=== PATIENT | male | born 1980 | race Caucasian/White ===

== ENCOUNTER 2018-08-23 14:55 | Emergency (ER) | payer OTHER ==
[~2018-08-23] VITALS: Ht 175.3 cm; Wt 89.0 kg
[2018-08-23 14:59] VITALS: Ht 175.3 cm; Wt 89.0 kg
[2018-08-23] MEDS ORDERED: LORA1TAB PO (17:39)
--- NOTE | 2018-08-23 17:48 | ERD ---
ER Documentation Chief Complaint Chief Complaint ANXIETY HPI 37-year-old male presents with 3 days history of anxiety. States that he has been feeling very anxious lately and finding himself getting irritated. States that he has had done methamphetamine in the past but denies any current meth use. He thinks that his anxiety might be due to stopping meth. Last use was 4 days ago. Has episodes in the past where he feels anxious and irritated and he just wants medication to help him get through the next few days. States that he intends to seek a therapist. Denies any suicidal or homicidal ideation. Denies any current drug use, chest pain, palpitations, history of thyroid problems, headaches, hypertension. In addition patient states that he was engaged in risky sexual behavior and would like infectious disease panel. Patient denies any dysuria, hematuria, penile discharge, rashes, fevers, chills. Denies any medical problems. Denies any allergies. ROS All systems reviewed and are negative except as per history of present illness. Medications Home Meds Active Scripts Lorazepam* (Lorazepam*) 1 Mg Tablet, 1 MG PO Q8H PRN for ANXIETY, #10 TAB Prov:STEPHANY HAYWOOD 08/23/18 FmHx Family History: No diabetes, No coronary disease, No other Physical Exam Vitals Vital Signs Date Temp Pulse Resp B/P (MAP) Pulse Ox O2 O2 Flow FiO2 Time Delivery Rate 08/23/18 98.1 86 18 138/65 99 14:59 (89) Physical Exam Const: No acute distress Head: Atraumatic Eyes: Normal Conjunctiva ENT: Normal External Ears, Nose and Mouth. Neck: Full range of motion. No meningismus. Resp: Clear to auscultation bilaterally Cardio: Regular rate and rhythm, no murmurs Abd: Soft, non tender, non distended. Normal bowel sounds Skin: No petechiae or rashes Back: No midline or flank tenderness Ext: No cyanosis, or edema Neur: Awake and alert Psych: Normal Mood and Affect Procedures/MDM MDM: Patient presentation consistent with anxiety, possibly related to cessation of meth which occurred 4 days ago. States that he has been in rehab and intends to come back. Patient was given the option of social service consult and refused. Patient states that he will follow-up with a therapist or rehab center on his own. I have low suspicion for acute methamphetamine withdrawal, benzodiazepine withdrawal, suicidal homicidal ideation, acute psychosis, or any other emergent condition. Patient was given 3-day course of Ativan and advised to follow-up with therapist. In addition, patient states that he is engaged in some risky sexual behavior and would like an infectious disease panel. Patient denies any dysuria, hematuria, penile discharge, rashes, fevers. Patient was advised to refrain from sexual activity with the partner until he knows that his lab results are negative and his symptoms have resolved. At this time, patient is stable for discharge and outpatient management. I have instructed the patient to follow-up with his/her primary care physician in 1-2 days. I have discussed with the patient the possibility of needing to see a specialist for further workup and imaging studies if symptoms persist. I have instructed the patient to promptly return to the ER for any new or worsening symptoms including but not limited to increased pain, fever, nausea, vomiting, weakness or LOC. The patient and/or family expressed understanding of and agreement with this plan. All questions were answered. Home care instructions were provided. DISCLAIMER: Inadvertent spelling and grammatical errors are likely due to EHR/dictation software use and do not reflect on the overall quality of patient care. Also, please note that the electronic time recorded on this note does not necessarily reflect the actual time of the patient encounter. Departure Diagnosis: Primary Impression: Anxiety Additional Impression: Risky sexual behavior High risk sexual behavior type: unspecified Qualified Codes: Z72.51 - High risk heterosexual behavior Condition: Stable Patient Instructions: Your Body's Response to Anxiety Referrals: [facility] YOU HAVE RECEIVED A MEDICAL SCREENING EXAM AND THE RESULTS INDICATE THAT YOU DO NOT HAVE A CONDITION THAT REQUIRES URGENT TREATMENT IN THE EMERGENCY DEPARTMENT. FURTHER EVALUATION AND TREATMENT OF YOUR CONDITION CAN WAIT UNTIL YOU ARE SEEN IN YOUR DOCTORS OFFICE WITHIN THE NEXT 1-2 DAYS. IT IS YOUR RESPONSIBILITY TO MAKE AN APPOINTMENT FOR FOLOW-UP CARE. IF YOU HAVE A PRIMARY DOCTOR --you should call your primary doctor and schedule an appointment IF YOU DO NOT HAVE A PRIMARY DOCTOR YOU CAN CALL OUR PHYSICIAN REFERRAL HOTLINE AT IF YOU CAN NOT AFFORD TO SEE A PHYSICIAN YOU CAN CHOSE FROM THE FOLLOWING [facility] [address] [facility] [facility] [address] [facility] [address] [facility] [address] [facility] [address] [facility] [address] [facility] [facility]. [address] Additional Instructions: FOLLOW UP WITH YOUR PRIMARY CARE PHYSICIAN TOMORROW.Return to this facility if you are not improving as expected. STEPHANY HAYWOOD Aug 23, 2018 17:48
[2018-08-23 18:06] VITALS: BP 125/66; PULSE 77; RESP 18
== END 2018-08-23 18:08 | disposition home or self-care (01) ==
LOC: FTE 14:55
DX: F41.9 Anxiety disorder, unspecified (principal); Z72.51 High risk heterosexual behavior
CPT/HCPCS: 36415; 86703; 86803; 87340; 87591; Z7502; 99283

== ENCOUNTER 2018-08-30 17:38 | Emergency (ER) | payer SELFPAY ==
[~2018-08-30] VITALS: Ht 180.3 cm; Wt 73.3 kg
[~2018-08-30 17:38] MED LIST: LORA1TAB PO
[2018-08-30 18:27] VITALS: BP 128/86; PULSE 112; RESP 16; Ht 180.3 cm; Wt 73.3 kg
== END 2018-08-30 18:41 | disposition left against medical advice (07) ==
LOC: FTE 17:38
DX: Z53.21 Procedure and treatment not carried out due to patient leaving prior to being seen by health care provider (principal)

== ENCOUNTER 2018-08-31 13:18 | Emergency (ER) | payer OTHER ==
[~2018-08-31] VITALS: Ht 177.8 cm; Wt 79.0 kg
[2018-08-31 13:23] VITALS: BP 130/78; PULSE 78; RESP 18; Ht 177.8 cm; Wt 79.0 kg
--- NOTE | 2018-08-31 15:47 | ERD ---
ER Documentation Chief Complaint Chief Complaint here to get results from prevous visit HPI 37 yr old Male presenting here for results from his previous visit. He was checked for HIV. He has not had any recent exposure he just felt it was time for him to have an evaluation to determine if he had any findings. Patient is not having any complaints today. Denies medical problems. NKDA. Surgical history hernia repair. Social history smokes a pack a day. ROS All systems reviewed and are negative except as per history of present illness. Medications Home Meds Active Scripts Lorazepam* (Lorazepam*) 1 Mg Tablet, 1 MG PO Q8H PRN for ANXIETY, #10 TAB Prov:STEPHANY HAYWOOD 08/23/18 Allergies Allergies: Coded Allergies: No Known Allergy (Unverified , 08/23/18) PMhx/Soc History of Surgery: Yes (Hernia repair) Anesthesia Reaction: No Hx Neurological Disorder: No Hx Respiratory Disorders: No Hx Cardiac Disorders: No Hx Psychiatric Problems: No Hx Miscellaneous Medical Probl: No Hx Alcohol Use: Yes (occasional) Hx Substance Use: Yes (METH) Hx Tobacco Use: Yes Smoking Status: Current every day smoker FmHx Family History: No diabetes, No coronary disease, No other Physical Exam Vitals Vital Signs Date Temp Pulse Resp B/P (MAP) Pulse Ox O2 O2 Flow FiO2 Time Delivery Rate 08/31/18 98.0 78 18 130/78 99 13:23 (95) Physical Exam GENERAL: The patient is well-appearing, well-nourished, in no acute distress HEENT: Atraumatic. Conjunctivae are pink. Pupils equal, round, and reactive to light. There is no scleral icterus. Tympanic membranes clear bilaterally. Oropharynx clear. NECK: C-spine is soft and supple. There is no meningismus. There is no cervical lymphadenopathy. CHEST: Clear to auscultation bilaterally. There are no rales, wheezes or rhonchi. HEART: Regular rate and rhythm. No murmurs, clicks, rubs or gallops. Procedures/MDM ER course: HIV testing and STD screening performed in the ER is all negative. MDM: 37-year-old male presenting for follow-up of testing results. Patient's tests are all negative. Patient is recommended to refer to primary doctor in the future for routine screenings. I have low suspicion for active infection at this time. Patient is recommended to use condoms and other protective items during intercourse. All questions answered at discharge Departure Diagnosis: Primary Impression: Encounter for laboratory test Condition: Stable Patient Instructions: Hiv Testing, Off-Site Referral Referrals: [facility] YOU HAVE RECEIVED A MEDICAL SCREENING EXAM AND THE RESULTS INDICATE THAT YOU DO NOT HAVE A CONDITION THAT REQUIRES URGENT TREATMENT IN THE EMERGENCY DEPARTMENT. FURTHER EVALUATION AND TREATMENT OF YOUR CONDITION CAN WAIT UNTIL YOU ARE SEEN IN YOUR DOCTORS OFFICE WITHIN THE NEXT 1-2 DAYS. IT IS YOUR RESPONSIBILITY TO MAKE AN APPOINTMENT FOR FOLOW-UP CARE. IF YOU HAVE A PRIMARY DOCTOR --you should call your primary doctor and schedule an appointment IF YOU DO NOT HAVE A PRIMARY DOCTOR YOU CAN CALL OUR PHYSICIAN REFERRAL HOTLINE AT IF YOU CAN NOT AFFORD TO SEE A PHYSICIAN YOU CAN CHOSE FROM THE FOLLOWING [facility] [address] [facility] [address] [facility] [address] [facility] [address] [facility] [address] [facility]. [facility] [address] Additional Instructions: FOLLOW UP WITH YOUR PRIMARY CARE PHYSICIAN TOMORROW.Return to this facility if you are not improving as expected. SHEREE OLIVIA PA-C Aug 31, 2018 15:47
== END 2018-08-31 15:30 | disposition home or self-care (01) ==
LOC: FTE 13:18
DX: Z00.00 Encounter for general adult medical examination without abnormal findings (principal)
CPT/HCPCS: 99282